=== PATIENT | male | born 1940 | race Two or more races ===

== ENCOUNTER → 2018-09-23 06:40 | Day surgery (SDC) | payer MEDICARE ==
[~2018-09-23 06:40] MED LIST: Acetaminophen TAB* 325 MG PO PRN; Buffered Lidocaine 1% SYRIN* 1 ML/SYRINGE INTRADERM ONE; Cyclopentolate 1% OPTH.SOL* 2 ML BTL ONE; Ketorolac 0.5% OPHTH (NF) 0.5 % 5 ML BTL ONE; Lidocaine 1% MPF ** 5 ML VIAL ONE; Lidocaine 2% w/ EPI 1:200,000* 20 ML SDV VIAL ONE; Midazolam* 1 MG/ML 2 ML VIAL (2 MG) ONE; Neomycin/Polymy/Dex OPTH.SUSP* MAXITROL 0.1% 5 ML ONE; Phenylephrine OPHTH SOL 2.5%* 2 ML ONE; Povidone Iodine 5% OPTH* 30 ML BTL ONE; Proparacaine 0.5% OPHTH.SOL* 15 ML BTL ONE; Propofol* 10 MG/ML 20 ML BTL ONE; acetaZOLAMIDE TAB* 250 MG ONE; fentaNYL* 50 MCG/ML 2 ML VIAL (100 MCG VIAL) ONE
[2018-09-23 09:02] VITALS: BP 115/63
--- NOTE | 2018-09-23 09:38 | OP ---
OPERATIVE NOTE: DATE OF OPERATION: 09/23/18. DATE OF : 40. SURGEON: Zack Montague M.D. PREOPERATIVE DIAGNOSIS: Cataract, left eye. POSTOPERATIVE DIAGNOSIS: Cataract, left eye. OPERATIVE PROCEDURE: Extracapsular cataract extraction with intraocular lens implant left eye. PROCEDURE: The patient was brought to the operating room after being given 1/2% Alcaine with epineph rine drops in the preoperative area. The eye was prepped and draped in the usual sterile fashion. S terile drape and eyelid speculum were placed. Again, topical 1/2% Alcaine with epinephrine was given . A paracentesis incision was made at the 3 o'clock position with the No.75 blade. Clear cornea inc ision 2.2 x 2.2-mm was created at the 6 o'clock position starting at the anterior limbus using the 2. 2-mm keratome. The anterior chamber was irrigated with 0.4 mL of 1% non-preservative intracameral li docaine and filled with DisCoVisc. A capsulorrhexis was completed using the cystotome and the Utrata forceps. Hydrodissection was performed with balanced salt solution. The lens nucleus was removed wi th the Phacoemulsification handpiece without incident. Cortex was removed with the irrigation-aspira tion handpiece. The capsular bag was re-inflated using DisCoVisc and an [id number] implant was insert ed with the shooter, oriented to the degree meridian. Horizontal reference mahajan were made wi th the patient in the preoperative area in a seated position. All measurements were confirmed with O RA. The irrigation-aspiration handpiece was used to remove all residual DisCoVisc. The eye was refi lled with balanced salt solution and the wound checked and found to be watertight. Topical Maxitrol drops were given. [id number]/[facility] #: [id number]
== END | disposition home or self-care (01) ==
LOC: OREAST 06:40
PROVIDERS: ATTEND Specialist
DX: H25.812 Combined forms of age-related cataract, left eye (principal); E11.3293 Type 2 diabetes mellitus with mild nonproliferative diabetic retinopathy without macular edema, bilateral; Z79.01 Long term (current) use of anticoagulants; I10 Essential (primary) hypertension; Z79.84 Long term (current) use of oral hypoglycemic drugs; Z87.891 Personal history of nicotine dependence
CPT/HCPCS: A9270-GY; J2250; J2704; J3010; V2787

== ENCOUNTER → 2019-01-26 08:20 | Day surgery (SDC) | payer MEDICARE ==
[~2019-01-26 08:20] MED LIST changes: -Buffered Lidocaine 1% SYRIN* 1 ML/SYRINGE INTRADERM ONE; -Cyclopentolate 1% OPTH.SOL* 2 ML BTL ONE; +Diazepam TAB(*) 5 MG ONE; -Ketorolac 0.5% OPHTH (NF) 0.5 % 5 ML BTL ONE; +Lidocaine 1% INJ* 10 MG/ML 30 ML SDV ONE; -Lidocaine 1% MPF ** 5 ML VIAL ONE; -Lidocaine 2% w/ EPI 1:200,000* 20 ML SDV VIAL ONE; -Midazolam* 1 MG/ML 2 ML VIAL (2 MG) ONE; +Midazolam* 1 MG/ML 5 ML VIAL (5 MG) ONE; +NS 0.9% 1000 ML** 1,000 ML IV SCH; -Neomycin/Polymy/Dex OPTH.SUSP* MAXITROL 0.1% 5 ML ONE; -Phenylephrine OPHTH SOL 2.5%* 2 ML ONE; -Povidone Iodine 5% OPTH* 30 ML BTL ONE; -Proparacaine 0.5% OPHTH.SOL* 15 ML BTL ONE; -Propofol* 10 MG/ML 20 ML BTL ONE; -acetaZOLAMIDE TAB* 250 MG ONE
[2019-01-26 10:51] LABS: Body Fluid Source Pericardial Fluid
[2019-01-26 13:35] VITALS: BP 127/78
[2019-01-26 14:09] LABS: Body Fluid Mono 78 %; Body Fluid Other Cells 1
--- NOTE | 2019-01-26 19:07 | ECHO ---
*[facility]* [place] [address] Fax #: [phone] Limited Transthoracic Echocardiogram Patient: Jhonny Leslie : 1940 Study Date: 01/26/2019 Age: 78 Gender: M HR: 56 bpm Height: / BSA: Weight: / BMI: *Referring Physician: * Claude Morel MD *Reading Physician: * Claude Morel MD Indications: Pericardial Effusion. History: Atrial fibrillation. PMH: Cardiomyopathy. Conclusions Summary: - Pericardium, extracardiac: There is no significant pericardial effusion. - S/P pericardiocentesis. Study data: Transthoracic echocardiogram, limited study. Procedure: Transthoracic echocardiography was performed. Image quality was good. Location: Procedure room. Patient status: Outpatient. Rhythm: Bradycardia. Findings Pericardium: There is no significant pericardial effusion. Prepared and electronically signed by Claude Morel MD 01/26/2019 19:06
[2019-01-27 12:16] LABS: Lactate Dehydrogenase, BF 144 U/L
== END | disposition home or self-care (01) ==
LOC: CHICATH 08:20
PROVIDERS: ATTEND Specialist
DX: I31.3 Pericardial effusion (noninflammatory) (principal); I42.9 Cardiomyopathy, unspecified; I10 Essential (primary) hypertension; I48.91 Unspecified atrial fibrillation; Z79.01 Long term (current) use of anticoagulants; E78.2 Mixed hyperlipidemia; E11.9 Type 2 diabetes mellitus without complications; Z79.84 Long term (current) use of oral hypoglycemic drugs; Z87.891 Personal history of nicotine dependence
CPT/HCPCS: 33010; 36415; 71045; 83615; 87040; 87205; 88112; 88305; 88341; 88342; 89051; 93308; 99156; 99157; A9270-GY; J2250; J3010

== ENCOUNTER 2019-06-28 15:44 | Inpatient (IN) ==
[2019-06-28] MEDS ORDERED: Furosemide 20 mg/2 ml IV VIAL IV SLOW PU ONE (16:42)
[2019-06-28 16:58] LABS: ABS Eosinophils 0.1 10^3/ul (0-0.6); ABS Lymphocytes 0.4 10^3/ul (1.0-4.8); ABS Monocytes 0.5 10^3/ul (0-0.8); Eosinophil % 1.1 %; Hematocrit 29 % (42-52); Hemoglobin 9.8 g/dL (14.0-18.0); Lymphocyte % 8.3 %; Mean Corpuscular HGB Conc 34 g/dL (31-36); Mean Corpuscular Hemoglobin 28 pg (27-31); Mean Corpuscular Volume 83 fL (80-94); Mean Platelet Volume 8.3 fL (7.4-10.4); Platelet Count 174 10^3/uL (150-450); Red Blood Count 3.52 10^6 /uL (4.18-5.48); Red Cell Distribution Width 18 % (10-15); White Blood Count 4.9 10^3/uL (3.5-10.8)
[2019-06-28 16:59] LABS: INR 2.1 (0.82-1.09)
[2019-06-28 17:11] LABS: Albumin 3.3 g/dL (3.2-5.2); Albumin/Globulin Ratio 1.2 (1-3); BUN/Creatinine Ratio 21.4 (8-20); Calcium 8.4 mg/dL (8.6-10.3); EGFR African American 14.2 (>60); EGFR Non-African American 11.8 (>60); Globulin 2.7 g/dL (2-4); Total Bilirubin 0.6 mg/dL (0.2-1.0)
[2019-06-28 17:12] LABS: Potassium 5.3 mmol/L (3.5-5.0)
[2019-06-28] MEDS ORDERED: Bumetanide IV 10 MG in Premix IV 0 ML IV SCH (20:00)
[2019-06-28 22:44] LABS: Urine Appearance Clear; Urine Bilirubin Negative (Negative); Urine Blood Negative (Negative); Urine Color Yellow; Urine Glucose Negative (Negative); Urine Ketones Negative (Negative); Urine Nitrite Negative (Negative); Urine Protein Negative (Negative); Urine Specific Gravity 1.009 (1.010-1.030); Urine Urobilinogen Negative (Negative)
[2019-06-28] MEDS: DOBUTamine 2000 MCG/ML IVPREMX 500 MG/250 ML BAG IV SCH (22:52)
[2019-06-29 04:42] LABS: ABS Lymphocytes 0.4 10^3/ul (1.0-4.8); ABS Monocytes 0.6 10^3/ul (0-0.8); Eosinophil % 0.8 %; Hematocrit 28 % (42-52); Hemoglobin 9.6 g/dL (14.0-18.0); Lymphocyte % 7.9 %; Mean Corpuscular HGB Conc 34 g/dL (31-36); Mean Corpuscular Hemoglobin 28 pg (27-31); Mean Corpuscular Volume 83 fL (80-94); Platelet Count 167 10^3/uL (150-450); Red Blood Count 3.41 10^6 /uL (4.18-5.48); Red Cell Distribution Width 18 % (10-15); White Blood Count 5.4 10^3/uL (3.5-10.8)
[2019-06-29] MEDS: Bumetanide IV 10 MG in Premix IV 0 ML IV SCH ×2 (04:44→13:17)
[2019-06-29 04:47] LABS: INR 1.81 (0.82-1.09)
[2019-06-29 04:58] LABS: BUN/Creatinine Ratio 22.1 (8-20); Calcium 8.4 mg/dL (8.6-10.3); EGFR African American 14.2 (>60); EGFR Non-African American 11.7 (>60)
[2019-06-29 05:02] LABS: Potassium 5.1 mmol/L (3.5-5.0)
[2019-06-29] MEDS ORDERED: Iron Sucrose 20 MG/ML 5 ML VIAL IV PUSH ONE (11:29)
[2019-06-29] MEDS: Furosemide 100 mg/10 ml IV 100 MG in NS 0.9% 100 ml BAG 90 ML IV SCH (22:30)
[2019-06-30] MEDS: Furosemide 100 mg/10 ml IV 100 MG in NS 0.9% 100 ml BAG 90 ML IV SCH ×5 (02:40→23:50)
[2019-06-30] MEDS: DOBUTamine 2000 MCG/ML IVPREMX 500 MG/250 ML BAG IV SCH (04:30)
[2019-06-30 04:58] LABS: Calcium 8.4 mg/dL (8.6-10.3); EGFR African American 14.1 (>60); EGFR Non-African American 11.7 (>60); Potassium 4.9 mmol/L (3.5-5.0)
[2019-06-30 05:41] LABS: Ferritin 124.5 ng/mL (24-336)
[2019-06-30] MEDS ORDERED: Norepinephrine 16MCG/ML IVPRE 4,000 MCG/250 ML BAG IV ONE (06:23)
[2019-07-01 04:41] LABS: Hematocrit 29 % (42-52); Hemoglobin 9.3 g/dL (14.0-18.0); Mean Corpuscular HGB Conc 33 g/dL (31-36); Mean Corpuscular Hemoglobin 27 pg (27-31); Mean Corpuscular Volume 83 fL (80-94); Platelet Count 158 10^3/uL (150-450); Red Blood Count 3.45 10^6 /uL (4.18-5.48); Red Cell Distribution Width 18 % (10-15); White Blood Count 4.6 10^3/uL (3.5-10.8)
[2019-07-01 05:04] LABS: BUN/Creatinine Ratio 22.2 (8-20); Calcium 8.3 mg/dL (8.6-10.3); EGFR African American 14.6 (>60); EGFR Non-African American 12.1 (>60); Potassium 4.9 mmol/L (3.5-5.0)
[2019-07-01] MEDS: Furosemide 100 mg/10 ml IV 100 MG in NS 0.9% 100 ml BAG 90 ML IV SCH (05:04)
[2019-07-01] MEDS ORDERED: Lidocaine 1% VIAL 10 MG/ML VIAL ONE (12:07)
[2019-07-01] MEDS ORDERED: Heparin 2 UNITS/ML 1000 mls 1,000 ML IV ONE (12:07)
[2019-07-01] MEDS ORDERED: Midazolam 5 mg/5 ml VIAL 1 mg/ml 5 ml VIAL (5 mg) ONE (12:22)
[2019-07-01] MEDS ORDERED: fentaNYL 100 mcg/2 ml 50 MCG/ML VIAL ONE (12:22)
[2019-07-01] MEDS ORDERED: Heparin 5000 UNITS/ML VIAL(*) 1 ml vial ONE (12:46)
[2019-07-01] MEDS ORDERED: Clindamycin 600 MG/D5W BAG(*) 600 MG/50 ML BAG IV ONE (13:00)
[2019-07-02 04:54] LABS: BUN/Creatinine Ratio 23.3 (8-20); Calcium 8.5 mg/dL (8.6-10.3); EGFR African American 14.3 (>60); EGFR Non-African American 11.8 (>60)
[2019-07-02 08:06] LABS: Magnesium 2.2 mg/dL (1.9-2.7); Phosphorus 6.4 mg/dL (2.5-5.0)
[2019-07-02] MEDS ORDERED: Furosemide 100 mg/10 ml IV 100 MG in NS 0.9% 100 ml BAG 90 ML IV SCH (09:00)
[2019-07-02] MEDS: Heparin DIALYSIS ONLY(*) 1,000 UNITS/ML VIAL DIALYSIS ONE ×3 (10:03→12:31)
[2019-07-02] MEDS: Furosemide 100 mg/10 ml IV 100 MG in NS 0.9% 100 ml BAG 90 ML IV SCH ×3 (10:47→22:19)
[2019-07-02 12:04] LABS: Hepatitis B Surface Antigen Nonreactive (Nonreactive)
[2019-07-02 12:21] LABS: Hepatitis C Antibody Negative (Negative)
[2019-07-03] MEDS: Furosemide 100 mg/10 ml IV 100 MG in NS 0.9% 100 ml BAG 90 ML IV SCH ×5 (03:22→20:47)
[2019-07-03 06:05] LABS: BUN/Creatinine Ratio 23.2 (8-20); Calcium 8.3 mg/dL (8.6-10.3); EGFR African American 17.4 (>60); EGFR Non-African American 14.4 (>60); Potassium 4.3 mmol/L (3.5-5.0)
[2019-07-03 14:06] LABS: Hepatitis B Surface Ab Not Immune (Immune)
[2019-07-04] MEDS: Furosemide 100 mg/10 ml IV 100 MG in NS 0.9% 100 ml BAG 90 ML IV SCH ×4 (01:52→17:06)
[2019-07-04 06:45] LABS: BUN/Creatinine Ratio 23.3 (8-20); Calcium 9.1 mg/dL (8.6-10.3); EGFR African American 16.5 (>60); EGFR Non-African American 13.6 (>60); Magnesium 1.9 mg/dL (1.9-2.7); Potassium 4.2 mmol/L (3.5-5.0)
[2019-07-05 06:34] LABS: Corrected Retic Count 0.6 % (0.5-1.5); Hematocrit for Retic CNT 29 % (42-52); Immature Retic Fraction 0.47; RBC Retic Count 3.53 10^6/uL (4.18-5.48)
[2019-07-05 06:48] LABS: BUN/Creatinine Ratio 23.9 (8-20); Calcium 8.8 mg/dL (8.6-10.3); EGFR African American 15.8 (>60); EGFR Non-African American 13.1 (>60); Potassium 4.2 mmol/L (3.5-5.0)
[2019-07-05] MEDS: Heparin 1,000 UNIT/ML CATH LAB 1,000 10 ml (10,000 UNITS) IV ONE ×4 (08:19→11:53)
[2019-07-05 14:41] LABS: Hepatitis B Surface Antigen Nonreactive (Nonreactive)
[2019-07-05 14:59] LABS: Hepatitis B Surface Ab Not Immune (Immune)
[2019-07-07 05:56] LABS: Hematocrit 28 % (42-52); Hemoglobin 9.6 g/dL (14.0-18.0); Mean Corpuscular HGB Conc 34 g/dL (31-36); Mean Corpuscular Hemoglobin 28 pg (27-31); Mean Corpuscular Volume 82 fL (80-94); Mean Platelet Volume 7.8 fL (7.4-10.4); Platelet Count 143 10^3/uL (150-450); Red Blood Count 3.46 10^6 /uL (4.18-5.48); Red Cell Distribution Width 18 % (10-15); White Blood Count 6.1 10^3/uL (3.5-10.8)
[2019-07-07 06:12] LABS: Anion Gap 10 mmol/L (2-11); BUN/Creatinine Ratio 20.5 (8-20); Blood Urea Nitrogen 77 mg/dL (6-24); CO2 Carbon Dioxide 23 mmol/L (22-32); Calcium 8.9 mg/dL (8.6-10.3); Chloride 97 mmol/L (101-111); EGFR Non-African American 15.7 (>60); Glucose 91 mg/dL (70-100); Phosphorus 4.8 mg/dL (2.5-5.0); Sodium 130 mmol/L (135-145)
[2019-07-07 06:34] LABS: % Iron Saturation 8 % (15-55); Iron 22 ug/dL (50-212); Total Iron Binding Capacity 266 mcg/dL (250-450); Transferrin 190 mg/dL (203-362)
[2019-07-07 06:56] LABS: Ferritin 150.5 ng/mL (24-336)
[2019-07-07 07:00] LABS: Folate 9.44 ng/mL (>3.99)
[2019-07-07] MEDS: Heparin DIALYSIS ONLY(*) 1,000 UNITS/ML VIAL DIALYSIS ONE ×4 (08:15→11:34)
[2019-07-07 19:28] VITALS: BP 115/75
== END 2019-07-07 14:55 | disposition home or self-care (01) | DRG 673 ==
LOC: ED 15:44 → ICU 20:24 → MEDTELE 07-02 13:42
PROVIDERS: ADMIT Internal Medicine; ATTEND Hospitalist